=== PATIENT | male | born 1945 ===

== ENCOUNTER 2016-12-24 10:00 | Outpatient (RCR) | payer MEDICARE, OTHER ==
[~2016-12-24] VITALS: Ht 160 cm; Wt 105.7 kg
[2016-12-28] MEDS ORDERED: Lidocaine 4% Top Soln 50ml TOPIC ONE (16:00)
== END 2017-01-08 | disposition home or self-care (01) ==
LOC: WCC 10:00
DX: L97.822 Non-pressure chronic ulcer of other part of left lower leg with fat layer exposed (principal); I87.2 Venous insufficiency (chronic) (peripheral); Z90.89 Acquired absence of other organs; I10 Essential (primary) hypertension; Z86.718 Personal history of other venous thrombosis and embolism; I25.10 Atherosclerotic heart disease of native coronary artery without angina pectoris; G47.30 Sleep apnea, unspecified; Z79.82 Long term (current) use of aspirin; Z88.0 Allergy status to penicillin; Z88.8 Allergy status to other drugs, medicaments and biological substances
CPT/HCPCS: 11042; 11045; 29580